=== PATIENT | female | born 1975 | race African-American/Black ===

== ENCOUNTER 2018-10-11 03:43 | Emergency (ER) | payer BC ==
[2018-10-11] MEDS ORDERED: Sodium Chloride 0.9% 10 ML Syringe FLUSH PRN (04:21)
[2018-10-11] MEDS ORDERED: Morphine 2 MG/ML Syringe IVPUSH ONE (04:21)
[2018-10-11] MEDS ORDERED: Ondansetron 4 MG/2 ML SDV IVPUSH ONE (04:21)
[2018-10-11] MEDS ORDERED: Pantoprazole 40 MG Vial IVPUSH ONE (04:21)
[2018-10-11] MEDS ORDERED: Sodium Chloride 0.9% 1,000 ML IV ONE (04:21)
[2018-10-11] MEDS ORDERED: Sodium Chloride 0.9% 2.5 ML Syringe FLUSH PRN (04:21)
--- NOTE | 2018-10-11 04:25 | EDM.PDOC ---
ED HPI GENERAL MEDICAL PROBLEM - General Chief Complaint: Abdominal Pain Stated Complaint: ABDOMINAL PAIN Time Seen by Provider: 10/11/18 04:12 - History of Present Illness INITIAL COMMENTS - FREE TEXT/NARRATIVE: HISTORY AND PHYSICAL: History of present illness: The patient is a 42-year-old female who was seen here mid-June for epigastric pain radiating to her chest and was worked up with labs CT scan of the abdomen and pelvis and chest x-ray. On that visit she was diagnosed with H. pylori and given treatment as well as cholelithiasis. The patient said she completed the treatment but did not follow-up and now is presenting with several days of epigastric pain similar to her prior episode of H. pylori. She has tried [id number]-[id number] medications such as antacids and H2 blockers and they have not worked. She's not had vomiting or diarrhea and the pain does not radiate but is mostly in the epigastrium. She says she has not had any food intolerance and no issues with right upper quadrant pain. Patient denies kidney trouble or urinary complaints and has no chest pain or shortness of breath. Patient says that the pain this time is much more severe than her prior visit here in June. Review of systems: As per history of present illness and below otherwise all systems reviewed and negative. Past medical history: As per history of present illness and as reviewed below otherwise noncontributory. Surgical history: As per history of present illness and as reviewed below otherwise noncontributory. Social history: No reported history of drug or alcohol abuse. Family history: As per history of present illness and as reviewed below otherwise noncontributory. Physical exam: General: Well-developed well-nourished female who is nontoxic and vital signs are noted by me HEENT: Atraumatic, normocephalic, negative for conjunctival pallor or scleral icterus, mucous membranes moist, throat clear, neck supple, nontender, trachea midline. Lungs: Clear to auscultation, breath sounds equal bilaterally, chest nontender. Heart: S1S2, regular rate and rhythm no overt murmurs Abdomen: Soft, nondistended, epigastric discomfort with palpation but no left upper or right upper quadrant tenderness and there is no rebound or guarding. The abdomen is very soft on my examination despite the discomfort. Negative for masses or hepatosplenomegaly. NABS Pelvis: Stable nontender. Genitourinary: Deferred. Rectal: Deferred. Extremities: Atraumatic, negative for cords or calf pain. Neurovascular unremarkable. Neuro: Awake, alert, oriented. Cranial nerves II through XII unremarkable. Cerebellum unremarkable. Motor and sensory unremarkable throughout. Exam nonfocal. Diagnostics: EKG CBC CMP amylase lipase H. pylori UCG UA CT scan of the abdomen and pelvis Therapeutics: IV fluids Protonix morphine Zofran Dilaudid 0650: Case was discussed with Dr. Martin and he feels the patient should get another dose of pain medication and she can be seen in his clinic today or tomorrow. The patient does have gallstones but has normal labs and has no right upper quadrant pain so we will treat her for H. pylori and biliary colic. He said he will see her and evaluate her for endoscopy and cholecystectomy. Patient is aware that she will receive more pain medication and an appointment will be made for her with Dr. Bojorquez to be seen. Impression: Recurrent H. pylori infection with epigastric pain, biliary colic with cholelithiasis Definitive disposition and diagnosis as appropriate pending reevaluation and review of above. Upper Abdominal Pain Score (Numeric/FACES): 8 - Related Data Allergies Allergy/AdvReac Type Severity Reaction Status Date / Time No Known Allergies Allergy Verified 10/11/18 04:09 Home Meds: Home Meds . 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 ED EXAM, GENERAL - Physical Exam Exam: See Below (see dictation) Course - Vital Signs Last Recorded V/S: Last Vital Signs Temp 36.9 C 10/11/18 06:45 Pulse 74 10/11/18 06:45 Resp 20 10/11/18 04:07 BP 158/96 H 10/11/18 06:45 Pulse Ox 100 10/11/18 06:45 - Orders/Labs/Meds Orders: Active Orders 24 hr Category Date Time Status EKG Documentation Completion [RC] STAT Care 10/11/18 04:20 Active Sodium Chloride 0.9% [Saline Flush] Med 10/11/18 04:21 Active 10 ml FLUSH ASDIRECTED PRN Sodium Chloride 0.9% [Saline Flush] Med 10/11/18 04:21 Active 2.5 ml FLUSH ASDIRECTED PRN Saline Lock Insert [OM.PC] Stat Oth 10/11/18 04:20 Ordered Medication Orders Sodium Chloride (Saline Flush) 10 ml FLUSH ASDIRECTED PRN PRN Reason: Keep Vein Open Last Admin: 10/11/18 04:54 Dose: 10 ml Sodium Chloride (Saline Flush) 2.5 ml FLUSH ASDIRECTED PRN PRN Reason: Keep Vein Open Last Admin: 10/11/18 04:55 Dose: 2.5 ml Labs: Laboratory Tests 10/11/18 10/11/18 10/11/18 Range/Units 04:30 04:30 04:30 WBC 11.28 H (4.0-11.0) K/uL RBC 4.56 (4.30-5.90) M/uL Hgb 13.3 (12.0-16.0) g/dL Hct 39.0 (36.0-46.0) % MCV 85.5 (80.0-98.0) fL MCH 29.2 (27.0-32.0) pg MCHC 34.1 (31.0-37.0) g/dL RDW Std Deviation 40.2 (28.0-62.0) fl RDW Coeff of Phillip 13 (11.0-15.0) % Plt Count 339 (150-400) K/uL MPV 8.70 (7.40-12.00) fL Neut % (Auto) 77.6 (48.0-80.0) % Lymph % (Auto) 16.4 (16.0-40.0) % [place] % (Auto) 5.4 (0.0-15.0) % Eos % (Auto) 0.4 (0.0-7.0) % Baso % (Auto) 0.2 (0.0-1.5) % Neut # (Auto) 8.8 H (1.4-5.7) K/uL Lymph # (Auto) 1.9 (0.6-2.4) K/uL [place] # (Auto) 0.6 (0.0-0.8) K/uL Eos # (Auto) 0.1 (0.0-0.7) K/uL Baso # (Auto) 0.0 (0.0-0.1) K/uL Nucleated RBC % 0.0 /100WBC Nucleated RBCs # 0 K/uL Sodium 135 L (136-145) mmol/L Potassium 3.8 (3.5-5.1) mmol/L Chloride 100 (98-107) mmol/L Carbon Dioxide 24.9 (21.0-32.0) mmol/L BUN 16 (7.0-18.0) mg/dL Creatinine 0.9 (0.6-1.0) mg/dL Est Cr Clr Drug Dosing 67.36 mL/min Estimated GFR (MDRD) > 60.0 ml/min Glucose 154 H (74-106) mg/dL Calcium 9.4 (8.5-10.1) mg/dL Total Bilirubin 0.4 (0.2-1.0) mg/dL AST 17 (15-37) IU/L ALT 21 (14-63) IU/L Alkaline Phosphatase 98 (46-116) U/L Total Protein 8.1 (6.4-8.2) g/dL Albumin 4.0 (3.4-5.0) g/dL Globulin 4.1 H (2.6-4.0) g/dL Albumin/Globulin Ratio 1.0 (0.9-1.6) Amylase 98 (25-115) U/L Lipase 143 (73-393) U/L HCG, Qual NEGATIVE (NEG) Urine Color Urine Appearance Urine pH (5.0-8.0) Ur Specific Gregory (1.001-1.035) Urine Protein (NEGATIVE) mg/dL Urine Glucose (UA) (NEGATIVE) mg/dL Urine Ketones (NEGATIVE) mg/dL Urine Occult Blood (NEGATIVE) Urine Nitrite (NEGATIVE) Urine Bilirubin (NEGATIVE) Urine Urobilinogen (<2.0) EU/dL Ur Leukocyte Esterase (NEGATIVE) H. pylori IgG Antibody POSITIVE H (NEG) 10/11/18 Range/Units 06:25 WBC (4.0-11.0) K/uL RBC (4.30-5.90) M/uL Hgb (12.0-16.0) g/dL Hct (36.0-46.0) % MCV (80.0-98.0) fL MCH (27.0-32.0) pg MCHC (31.0-37.0) g/dL RDW Std Deviation (28.0-62.0) fl RDW Coeff of Phillip (11.0-15.0) % Plt Count (150-400) K/uL MPV (7.40-12.00) fL Neut % (Auto) (48.0-80.0) % Lymph % (Auto) (16.0-40.0) % [place] % (Auto) (0.0-15.0) % Eos % (Auto) (0.0-7.0) % Baso % (Auto) (0.0-1.5) % Neut # (Auto) (1.4-5.7) K/uL Lymph # (Auto) (0.6-2.4) K/uL [place] # (Auto) (0.0-0.8) K/uL Eos # (Auto) (0.0-0.7) K/uL Baso # (Auto) (0.0-0.1) K/uL Nucleated RBC % /100WBC Nucleated RBCs # K/uL Sodium (136-145) mmol/L Potassium (3.5-5.1) mmol/L Chloride (98-107) mmol/L Carbon Dioxide (21.0-32.0) mmol/L BUN (7.0-18.0) mg/dL Creatinine (0.6-1.0) mg/dL Est Cr Clr Drug Dosing mL/min Estimated GFR (MDRD) ml/min Glucose (74-106) mg/dL Calcium (8.5-10.1) mg/dL Total Bilirubin (0.2-1.0) mg/dL AST (15-37) IU/L ALT (14-63) IU/L Alkaline Phosphatase (46-116) U/L Total Protein (6.4-8.2) g/dL Albumin (3.4-5.0) g/dL Globulin (2.6-4.0) g/dL Albumin/Globulin Ratio (0.9-1.6) Amylase (25-115) U/L Lipase (73-393) U/L HCG, Qual (NEG) Urine Color YELLOW Urine Appearance SLT CLOUDY Urine pH 6.5 (5.0-8.0) Ur Specific Gregory 1.010 (1.001-1.035) Urine Protein NEGATIVE (NEGATIVE) mg/dL Urine Glucose (UA) NEGATIVE (NEGATIVE) mg/dL Urine Ketones NEGATIVE (NEGATIVE) mg/dL Urine Occult Blood NEGATIVE (NEGATIVE) Urine Nitrite NEGATIVE (NEGATIVE) Urine Bilirubin NEGATIVE (NEGATIVE) Urine Urobilinogen 0.2 (<2.0) EU/dL Ur Leukocyte Esterase NEGATIVE (NEGATIVE) H. pylori IgG Antibody (NEG) Meds: Medications Generic Name Dose Route Start Last Admin Trade Name Freq PRN Reason Stop Dose Admin Sodium Chloride 10 ml 10/11/18 04:21 10/11/18 04:54 Saline Flush FLUSH 10 ml ASDIRECTED PRN Administration Keep Vein Open Sodium Chloride 2.5 ml 10/11/18 04:21 10/11/18 04:55 Saline Flush FLUSH 2.5 ml ASDIRECTED PRN Administration Keep Vein Open Discontinued Medications Generic Name Dose Route Start Last Admin Trade Name Freq PRN Reason Stop Dose Admin Hydromorphone HCl 1 mg 10/11/18 06:56 Dilaudid IVPUSH 10/11/18 06:57 ONETIME ONE Sodium Chloride 1,000 mls @ 999 mls/hr 10/11/18 04:21 10/11/18 04:37 Normal Saline IV 10/11/18 05:21 999 mls/hr STAT ONE Administration Iopamidol 100 ml 10/11/18 05:35 10/11/18 05:44 Isovue-370 (76%) IVPUSH 10/11/18 05:36 100 ml ONETIME ONE Administration Morphine Sulfate 4 mg 10/11/18 04:21 10/11/18 04:38 Morphine IVPUSH 10/11/18 04:22 4 mg ONETIME ONE Administration Ondansetron HCl 4 mg 10/11/18 04:21 10/11/18 04:45 Zofran IVPUSH 10/11/18 04:22 4 mg ONETIME ONE Administration Pantoprazole Sodium 80 mg 10/11/18 04:21 10/11/18 04:50 Protonix Iv IVPUSH 10/11/18 04:22 80 mg .BOLUS ONE Administration Departure - Departure Time of Disposition: 06:59 Disposition: Home, Self-Care 01 Condition: Good Clinical Impression: Helicobacter pylori (H. pylori), Biliary colic Cholelithiasis Qualifiers: Cholelithiasis location: gallbladder Cholecystitis presence: without cholecystitis Biliary obstruction: without biliary obstruction Qualified Code(s) : K80.20 - Calculus of gallbladder without cholecystitis without obstruction - Discharge Information Referrals: Dyana Wolfe NP [Primary Care Provider] - Forms: ED Department Discharge Additional Instructions: The following information is given to patients seen in the emergency department who are being discharged to home. This information is to outline your options for follow-up care. We provide all patients seen in our emergency department with a follow-up referral. The need for follow-up, as well as the timing and circumstances, are variable depending upon the specifics of your emergency department visit. If you don't have a primary care physician on staff, we will provide you with a referral. We always advise you to contact your personal physician following an emergency department visit to inform them of the circumstance of the visit and for follow-up with them and/or the need for any referrals to a consulting specialist. The emergency department will also refer you to a specialist when appropriate. This referral assures that you have the opportunity for followup care with a specialist. All of these measure are taken in an effort to provide you with optimal care, which includes your followup. Under all circumstances we always encourage you to contact your private physician who remains a resource for coordinating your care. When calling for followup care, please make the office aware that this follow-up is from your recent emergency room visit. If for any reason you are refused follow-up, please contact the [facility] emergency department at and ask to speak to the emergency department charge nurse. [facility] Professional Building [address] [place] [id number] The nurse will make a follow-up appointment for you with Dr. Martin and contact you in the next few hours with that appointment time. Please go home and rest and eat a low-fat diet and push hydration. Use medications as prescribed for nausea and for pain and also take the medications for your H. pylori infection. Return to ER as needed and as discussed - My Orders Last 24 Hours: My Active Orders 10/11/18 04:20 EKG Documentation Completion [RC] STAT Saline Lock Insert [OM.PC] Stat 10/11/18 04:21 Sodium Chloride 0.9% [Saline Flush] 10 ml FLUSH ASDIRECTED PRN Sodium Chloride 0.9% [Saline Flush] 2.5 ml FLUSH ASDIRECTED PRN - Assessment/Plan Last 24 Hours: My Active Orders 10/11/18 04:20 EKG Documentation Completion [RC] STAT Saline Lock Insert [OM.PC] Stat 10/11/18 04:21 Sodium Chloride 0.9% [Saline Flush] 10 ml FLUSH ASDIRECTED PRN Sodium Chloride 0.9% [Saline Flush] 2.5 ml FLUSH ASDIRECTED PRN
[2018-10-11 04:59] LABS: CHLORIDE,CL 100 mmol/L (98-107); SODIUM,NA 135 mmol/L (136-145)
[2018-10-11] MEDS ORDERED: Iopamidol 755 Mg/ML 100 ML Bottle IVPUSH ONE (05:35)
--- NOTE | 2018-10-11 06:35 | CT ---
INDICATION: Abdominal pain. COMPARISON: CT scan of the abdomen and pelvis dated 14 June 2018. TECHNIQUE: CT scan of the abdomen and pelvis with 100 cc of Isovue-370 given intravenously. FINDINGS: The lung bases are unremarkable. No focal abnormalities identified in the visualized portions of the liver, spleen, pancreas, and adrenal glands. Dystrophic calcification in the superior pole of the left kidney. 1.0 cm cyst in the superior pole of the right kidney. The kidneys are otherwise unremarkable. No hydronephrosis. No obstructing uroliths. Gallstone in the gallbladder. Minimal pericholecystic edema. The GI tract is incompletely distended but shows no gross abnormalities. The stomach and GE junction are not well assessed. No retroperitoneal, pelvic sidewall, or mesenteric adenopathy. IMPRESSION: 1. Cholelithiasis. Minimal pericholecystic edema. This could represent a cholecystitis. Dictated by John Dumont MD @ 10/11/2018 6:34:25 AM Please note that all CT scans at this facility use dose modulation, iterative reconstruction, and/or weight-based dosing when appropriate to reduce radiation dose to as low as reasonably achievable. Dictated by: John Dumont MD @ 10/11/2018 06:34:35 (Electronically Signed)
[2018-10-11] MEDS ORDERED: HYDROmorphone 1 MG/ML Syringe IVPUSH ONE (06:56)
[2018-10-11 07:39] VITALS: BP 123/76
== END 2018-10-11 07:39 | disposition home or self-care (01) ==
LOC: MW.ED 03:43
DX: K80.70 Calculus of gallbladder and bile duct without cholecystitis without obstruction (principal); B96.81 Helicobacter pylori [H. pylori] as the cause of diseases classified elsewhere
CPT/HCPCS: 36415; 74177; 80053; 81003; 82150; 83690; 84703; 85025; 86677; 93005; 96361; 96374; 96375; 99284; C9113; J1170; J2270; J2405; J7040; Q9967; 99283

== ENCOUNTER 2018-10-14 09:10 | Day surgery (SDC) | payer BC ==
[~2018-10-14 09:10] MED LIST: Glycopyrrolate 0.2 MG/ML SDV ONE; Lactated Ringers 1,000 ML IV SCH; Lidocaine 2% 5 ML SDV ONE; Midazolam 1 MG/ML 2 ML SDV ONE; Neostigmine Methylsulfate 1 MG/ML 5 ML Syringe ONE; Ondansetron 4 MG/2 ML SDV ONE; Propofol 200 MG/20 ML SDV ONE; Rocuronium 10 MG/ML 10 ML Syringe ONE; ceFAZolin 2 GM in Premix Bag 1 BAG IV ONE; fentaNYL 250 MCG/5 ML SDV ONE
[2018-10-14] MEDS ORDERED: Scopolamine 1.5 MG Transdermal Patch TRDERM PRN (10:30)
[2018-10-14] MEDS ORDERED: Bupivacaine 0.25% 10 ML SDV ONE (10:45)
[2018-10-14] MEDS ORDERED: Iopamidol 408 MG/ML 50 ML SDV ONE (10:46)
[2018-10-14] MEDS ORDERED: Bupivacaine 0.25%/EPINEPHrine 1:200,000 10 ML SDV ONE ×2 (10:51→11:33)
--- NOTE | 2018-10-14 10:53 | PCM.PREANE ---
Preanesthetic Assessment - Anesthesia/Transfusion/Family Hx Anesthesia History: No Prior Anesthesia Family History of Anesthesia Reaction: No Transfusion History: No Prior Transfusion(s) - Review of Systems General: No Symptoms Pulmonary: No Symptoms Cardiovascular: No Symptoms Gastrointestinal: No Symptoms Neurological: No Symptoms Other: Reports: None - Physical Assessment NPO Status Date: 10/13/18 Height: 5 ft 3 in Weight: 80.286 kg ASA Class: 1 Mental Status: Alert & Oriented x3 Airway Class: Mallampati = 1 Dentition: Reports: Normal Dentition ROM/Head Extension: Full Lungs: Clear to Auscultation, Normal Respiratory Effort Cardiovascular: Regular Rate, Regular Rhythm - Lab Values: Laboratory Last Values Urine HCG, Qual NEGATIVE (NEGATIVE) 10/14/18 10:24 - Allergies Allergies/Adverse Reactions: Allergies Allergy/AdvReac Type Severity Reaction Status Date / Time No Known Allergies Allergy Verified 10/11/18 16:01 - Blood Blood Available: No - Anesthesia Plan Pre-Op Medication Ordered: None - Acknowledgements Anesthesia Type Planned: General Anesthesia Pt an Appropriate Candidate for the Planned Anesthesia: Yes Alternatives and Risks of Anesthesia Discussed w Pt/Guardian: Yes Pt/Guardian Understands and Agrees with Anesthesia Plan: Yes PreAnesthesia Questionnaire - Past Health History Medical/Surgical History: Denies Medical/Surgical History HEENT History: Reports: None Other Cardiovascular History: murmur as an infant Respiratory History: Reports: None Gastrointestinal History: Reports: Cholelithiasis, GERD Genitourinary History: Reports: None [employer] History: Reports: Musculoskeletal History: Reports: None Neurological History: Reports: None Psychiatric History: Reports: None Endocrine/Metabolic History: Reports: Obesity/BMI 30+ Hematologic History: Reports: None Immunologic History: Reports: None Oncologic (Cancer) History: Reports: None Dermatologic History: Reports: None - Past Surgical History Head Surgeries/Procedures: Reports: None HEENT Surgical History: Reports: None Cardiovascular Surgical History: Reports: None Respiratory Surgical History: Reports: None GI Surgical History: Reports: None Female Surgical History: Reports: None Endocrine Surgical History: Reports: None Neurological Surgical History: Reports: None Oncologic Surgical History: Reports: None Dermatological Surgical History: Reports: None - SUBSTANCE USE Smoking Status *Q: Former Smoker Tobacco Use Within Last Twelve Months: Cigarettes Recreational Drug Use History: No - HOME MEDS Home Medications: Home Meds Acetaminophen [Tylenol] 1 - 2 tab PO ASDIRECTED PRN 10/11/18 [History] Amoxicillin 2 tab PO BID 10/11/18 [History] Clarithromycin 500 mg PO BID 10/11/18 [History] Lansoprazole [Prevacid] 30 mg PO DAILY 10/11/18 [History] Ondansetron HCl [Ondansetron] 4 mg PO ASDIRECTED PRN 10/11/18 [History] traMADol HCl [Tramadol HCl] 50 mg PO ASDIRECTED PRN 10/11/18 [History] - CURRENT (IN HOUSE) MEDS Current Meds: Current Medications Lactated Ringer's (Ringers, Lactated) 1,000 mls @ 125 mls/hr IV ASDIRECTED CECE Scopolamine (Transderm-Scop) 1.5 mg TRDERM Q72H PRN PRN Reason: Nausea/Vomiting Discontinued Medications Bupivacaine HCl (Sensorcaine-Mpf 0.25%) Confirm Administered Dose 10 ml .ROUTE .STK-MED ONE Stop: 10/14/18 10:46 Fentanyl (Sublimaze) Confirm Administered Dose 250 mcg .ROUTE .STK-MED ONE Stop: 10/14/18 08:49 Glycopyrrolate (Robinul) Confirm Administered Dose 0.4 mg .ROUTE .STK-MED ONE Stop: 10/14/18 08:48 Cefazolin Sodium/Dextrose 2 gm (/ Premix) 50 mls @ 100 mls/hr IV ONETIME ONE Stop: 10/14/18 05:29 Iopamidol (Isovue-200 (41%)) Confirm Administered Dose 50 ml .ROUTE .STK-MED ONE Stop: 10/14/18 10:47 Lidocaine (Xylocaine-Mpf 2%) Confirm Administered Dose 5 ml .ROUTE .STK-MED ONE Stop: 10/14/18 08:48 Midazolam HCl (Versed 1 Mg/Ml) Confirm Administered Dose 2 mg .ROUTE .STK-MED ONE Stop: 10/14/18 08:49 Neostigmine Methylsulfate (Neostigmine) Confirm Administered Dose 5 mg .ROUTE .STK-MED ONE Stop: 10/14/18 08:48 Ondansetron HCl (Zofran) Confirm Administered Dose 4 mg .ROUTE .STK-MED ONE Stop: 10/14/18 08:48 Propofol (Diprivan 20 Ml) Confirm Administered Dose 200 mg .ROUTE .STK-MED ONE Stop: 10/14/18 08:49 Rocuronium [place] (Zemuron) Confirm Administered Dose 100 mg .ROUTE .STK-MED ONE Stop: 10/14/18 08:48
[2018-10-14] MEDS ORDERED: ceFAZolin 1 GM Vial ONE (11:17)
[2018-10-14] MEDS ORDERED: Sodium Chloride 0.9% 20 ML ONE (11:17)
[2018-10-14] MEDS ORDERED: ePHEDrine 50 MG/ML SDV ONE (11:33)
[2018-10-14] MEDS ORDERED: EPINEPHrine 1:10,000 1 MG/10 ML Syringe IVPUSH PRN (11:38)
[2018-10-14] MEDS ORDERED: Atropine 0.1 MG/ML 10 ML Syringe IVPUSH PRN ×2 (11:38)
[2018-10-14] MEDS ORDERED: Albuterol 0.083% 2.5 MG/3 ML Neb Soln NEB PRN (11:38)
[2018-10-14] MEDS ORDERED: Naloxone 0.4 MG/ML Syringe IVPUSH PRN (11:38)
[2018-10-14] MEDS ORDERED: fentaNYL 100 MCG/2 ML SDV IVPUSH PRN (11:38)
[2018-10-14] MEDS ORDERED: 50% Dextrose in Water 50 ML Syringe IVPUSH PRN (11:38)
[2018-10-14] MEDS ORDERED: fentaNYL 100 MCG/2 ML SDV ONE (11:50)
[2018-10-14] MEDS ORDERED: Ketorolac 30 MG/ML SDV ONE (12:17)
[2018-10-14] MEDS ORDERED: Dexamethasone 4 MG/ML 5 ML MDV ONE (12:17)
[2018-10-14] MEDS ORDERED: Acetaminophen 1,000 MG in Premix Bag 1 BAG IV ONE (12:56)
--- NOTE | 2018-10-14 12:59 | PCM.OPNOTE ---
- General Post-Op/Procedure Note Date of Surgery/Procedure: 10/14/18 Operative Procedure(s): lap genia Findings: gb yellow and green cw chronic cholecystitis; and many gallstones, 3 large ones 10+mm; wall is not thickened; [id number] Pre Op Diagnosis: chronic and acute cholecystitis Post-Op Diagnosis: Same Anesthesia Technique: General ET Tube Primary Surgeon: Fuad Martin Pathology: sent Complications: None Condition: Good
--- NOTE | 2018-10-14 13:22 | OR ---
SURGEON: Fuad Martin MD DATE OF PROCEDURE: 10/14/2018 PREOPERATIVE DIAGNOSIS: [id number] cholecystitis. POSTOPERATIVE DIAGNOSIS: [id number] cholecystitis. PROCEDURE PERFORMED: Laparoscopic cholecystectomy. COMPLICATION: None. FINDINGS: Gallbladder wall is not thickened, but is yellow and green and consistent with chronic cholecystitis, and also the patient has several stones and three of them are bigger than 1 cm. PROCEDURE IN DETAIL: The patient was taken to the operating room and placed in the supine position. After the intubation of general endotracheal anesthesia, the patient's abdomen was prepped and draped in the usual sterile fashion. Using Feeding Forward, a 12 mm trocar was placed supraumbilically and then followed with pneumoperitoneum. A 5 mm trocar was placed in the epigastrium and two 5 mm trocars placed in the right upper quadrant. The placement of the last three trocars was done under direct video supervision. Upon gaining entrance to the abdominal cavity, an extensive examination was then performed. The gallbladder was located and identified and retracted to the dome of the liver at the triangle of Calot. The cystic duct was clipped three more times and then using the endoscopic clip, was transected with placement of the endoscopic clip and transection was performed with care, ensuring the posterior prong of the instruments were clearly visualized prior to exercising the procedure. The gallbladder was dissected using electrocautery out of the liver bed and then removed using endoscopic bag through the umbilical site. The gallbladder was removed en bloc and there was no bile spillage and this was then followed with extensive irrigation until the bile was clear from blood and bile. The trocars were then removed under direct video supervision. The 12 mm umbilical site was then closed with deep stitches using 0 Vicryl followed with proximal stitches using 3-0 Vicryl and Dermabond. The other three trocar sites were closed with 3-0 Vicryl followed with approximation of skin with Dermabond. The patient was then awakened and extubated and transferred to the recovery room in hemodynamically stable condition. At the conclusion of the surgery, before closing the abdominal wound, instrument count and sponge count were done and were correct. The patient tolerated the procedure well and there were no intraoperative complications. Dr. Martin was present through the whole procedure. Just before surgery, a timeout was called. The patient was identified and procedure identified and procedure started. ESTELLE / MACRINA /[id number]
--- NOTE | 2018-10-14 13:24 | PCM.POSTAN ---
POST ANESTHESIA ASSESSMENT - MENTAL STATUS Mental Status: Alert, Oriented - RESPIRATORY Respiratory Status: Respiratory Rate WNL, Airway Patent, O2 Saturation Stable - CARDIOVASCULAR CV Status: Pulse Rate WNL, Blood Pressure Stable - GASTROINTESTINAL GI Status: No Symptoms - POST OP HYDRATION Hydration Status: Adequate & Stable - OBSERVATIONS Free Text/Narrative:: The patient tolerated the procedure well. there were no apparent anesthetic complications at this time. Discharge to phase 2.
[2018-10-14] MEDS ORDERED: Acetaminophen/oxyCODONE 325-5 MG Tab PO ONE (14:48)
[2018-10-14] MEDS ORDERED: Haloperidol Lactate 5 MG/ML SDV IM ONE (15:09)
--- NOTE | 2018-10-14 15:20 | PCM48HPAN ---
Post Anesthesia Note - EVALUATION WITHIN 48HRS OF ANESTHETIC Vital Signs in Normal Range: Yes Patient Participated in Evaluation: Yes Respiratory Function Stable: Yes Airway Patent: Yes Cardiovascular Function Stable: Yes Hydration Status Stable: Yes Pain Control Satisfactory: Yes Nausea and Vomiting Control Satisfactory: Yes Mental Status Recovered: Yes Resp Rate: 10
[2018-10-14 16:01] VITALS: BP 122/69
== END 2018-10-14 15:47 | disposition home or self-care (01) ==
LOC: MW.SDS 09:10
PROVIDERS: ATTEND Surgery
DX: K80.12 Calculus of gallbladder with acute and chronic cholecystitis without obstruction (principal); A04.8 Other specified bacterial intestinal infections; K21.9 Gastro-esophageal reflux disease without esophagitis; Z87.891 Personal history of nicotine dependence; Z79.899 Other long term (current) drug therapy
CPT/HCPCS: 47562; 81025; A9270; J0131; J0690; J1100; J1885; J2001; J2250; J2405; J2704; J3010; J3490; J7120; Q9966; 88304

== ENCOUNTER 2018-10-22 08:43 | Day surgery (SDC) | payer BC ==
[~2018-10-22 08:43] MED LIST changes: -Glycopyrrolate 0.2 MG/ML SDV ONE; -Lidocaine 2% 5 ML SDV ONE; -Midazolam 1 MG/ML 2 ML SDV ONE; -Neostigmine Methylsulfate 1 MG/ML 5 ML Syringe ONE; -Ondansetron 4 MG/2 ML SDV ONE; -Propofol 200 MG/20 ML SDV ONE; -Rocuronium 10 MG/ML 10 ML Syringe ONE; -ceFAZolin 2 GM in Premix Bag 1 BAG IV ONE; -fentaNYL 250 MCG/5 ML SDV ONE
--- NOTE | 2018-10-22 10:14 | PCM.PREANE ---
Preanesthetic Assessment - Anesthesia/Transfusion/Family Hx Anesthesia History: Prior Anesthesia Without Reaction Family History of Anesthesia Reaction: No Transfusion History: No Prior Transfusion(s) Intubation History: Unknown - Review of Systems General: No Symptoms Pulmonary: No Symptoms Cardiovascular: No Symptoms Gastrointestinal: No Symptoms Neurological: No Symptoms Other: Reports: None - Physical Assessment O2 Sat by Pulse Oximetry: 100 Respiratory Rate: 16 Vital Signs: Last Vital Signs Temp 36. C 10/22/18 09:46 Pulse 84 10/22/18 09:46 Resp 16 10/22/18 09:46 BP 119/65 10/22/18 09:46 Pulse Ox 100 10/22/18 09:46 Height: 1.6 m Weight: 80.286 kg ASA Class: 2 Mental Status: Alert & Oriented x3 Airway Class: Mallampati = 2 Dentition: Reports: Normal Dentition Thyro-Mental Finger Breadths: 3 Mouth Opening Finger Breadths: 3 ROM/Head Extension: Full Lungs: Clear to Auscultation, Normal Respiratory Effort Cardiovascular: Regular Rate, Regular Rhythm - Lab Values: Laboratory Last Values Urine HCG, Qual NEGATIVE (NEGATIVE) 10/22/18 09:40 - Allergies Allergies/Adverse Reactions: Allergies Allergy/AdvReac Type Severity Reaction Status Date / Time No Known Allergies Allergy Verified 10/19/18 10:05 - Blood Blood Available: No - Anesthesia Plan Pre-Op Medication Ordered: None - Acknowledgements Anesthesia Type Planned: MAC Pt an Appropriate Candidate for the Planned Anesthesia: Yes Alternatives and Risks of Anesthesia Discussed w Pt/Guardian: Yes Pt/Guardian Understands and Agrees with Anesthesia Plan: Yes PreAnesthesia Questionnaire - Past Health History Medical/Surgical History: Denies Medical/Surgical History HEENT History: Reports: None Other Cardiovascular History: murmur as an Respiratory History: Reports: None Gastrointestinal History: Reports: GERD Genitourinary History: Reports: None YARD RIGGER History: Reports: Musculoskeletal History: Reports: None Neurological History: Reports: None Psychiatric History: Reports: None Endocrine/Metabolic History: Reports: Obesity/BMI 30+ Hematologic History: Reports: None Immunologic History: Reports: None Oncologic (Cancer) History: Reports: None Dermatologic History: Reports: None - Past Surgical History Head Surgeries/Procedures: Reports: None HEENT Surgical History: Reports: None Cardiovascular Surgical History: Reports: None Respiratory Surgical History: Reports: None GI Surgical History: Reports: Cholecystectomy Female Surgical History: Reports: None Endocrine Surgical History: Reports: None Neurological Surgical History: Reports: None Oncologic Surgical History: Reports: None Dermatological Surgical History: Reports: None - SUBSTANCE USE Smoking Status *Q: Former Smoker (quit 6 months ago) Tobacco Use Within Last Twelve Months: Cigarettes Recreational Drug Use History: No - HOME MEDS Home Medications: Home Meds Amoxicillin 21,000 mg PO BID 10/11/18 [History] Clarithromycin 500 mg PO BID 10/11/18 [History] Lansoprazole [Prevacid] 30 mg PO BID 10/11/18 [History] Ondansetron HCl [Ondansetron] 4 mg PO ASDIRECTED PRN 10/11/18 [History] oxyCODONE HCl/Acetaminophen [Oxycodone-Acetaminophen 5-300] 1 tab PO ASDIRECTED PRN 10/19/18 [History] - CURRENT (IN HOUSE) MEDS Current Meds: Current Medications Lactated Ringer's (Ringers, Lactated) 1,000 mls @ 125 mls/hr IV ASDIRECTED CECE Last Admin: 10/22/18 09:52 Dose: 125 mls/hr
[2018-10-22] MEDS ORDERED: fentaNYL 100 MCG/2 ML SDV ONE (10:18)
[2018-10-22] MEDS ORDERED: Midazolam 1 MG/ML 2 ML SDV ONE (10:18)
[2018-10-22] MEDS ORDERED: Propofol 200 MG/20 ML SDV ONE ×2 (10:18→11:17)
[2018-10-22] MEDS ORDERED: Glycopyrrolate 0.2 MG/ML SDV ONE (10:21)
--- NOTE | 2018-10-22 11:43 | PCM.OPNOTE ---
- General Post-Op/Procedure Note Date of Surgery/Procedure: 10/22/18 Operative Procedure(s): egd w bx. colonoscopy Findings: see dict [id number] Pre Op Diagnosis: wt loss and abd pain Post-Op Diagnosis: Same Anesthesia Technique: Moderate Sedation Primary Surgeon: Fuad Martin Pathology: egd bx Complications: None Condition: Good
[2018-10-22 12:09] VITALS: BP 102/59
--- NOTE | 2018-10-22 15:05 | OR ---
SURGEON: Fuad Martin MD DATE OF PROCEDURE: 10/22/2018 PREOPERATIVE DIAGNOSES: 1. Weight loss. 2. Increasing diarrhea. 3. Gastroesophageal reflux disease. POSTOPERATIVE DIAGNOSES: 1. Weight loss. 2. Increasing diarrhea. 3. Gastroesophageal reflux disease. PROCEDURES PERFORMED: Esophagogastroduodenoscopy with biopsy, and colonoscopy. PROCEDURE IN DETAIL: EGD: The patient was taken to the endoscopy room, and with the COMMERCIAL CREDIT ANALYST, Diprivan was administered. A well-lubricated EGD scope was gently inserted through the oropharynx, down the esophagus, passing through the gastroesophageal junction, into the stomach. The mucosa was examined upon the passage. Any etiology will be noted. Once in the stomach, we continued to advance to the distal antrum, passed through the pylorus into the second portion of the duodenum. Again, the mucosa was examined for any abnormality and etiology. The scope was then retrieved back to the stomach and then retroflexed to look at the fundus of the stomach. If a biopsy was indicated, we will biopsy the antrum, body, and gastroesophageal junction. The air will be sucked out while the scope is retrieved to reduce the patient's discomfort. The patient tolerated the procedure well. There were no intraoperative complications. Dr. Martin was present through the whole procedure. Prior to surgery, a time-out had been called, the patient identified, procedure identified and antibiotic administered. Colonoscopy procedure: The patient was taken to the endoscopy room. A time out was called, patient identified, and procedure identified. Diprivan was then administrated. Patient went from awake to sleep, hearing doctor talking or door closing is normal. Perineum inspection and digital examination were then performed. A well- lubricated colonoscope was gently inserted through the rectum, advanced past the rectosigmoid junction, the descending colon, splenic flexure, transverse colon, hepatic flexure, ascending colon, arrived to the cecum. Cecum was identified as dictated in the finding. Then the scope was carefully withdrawn while attention was paid to the mucosal surface for any abnormality. Air will be sucked out during the scope withdrawal. At the rectum, retroflexed to examine any rectal diseases, fistula or hemorrhoids. Patient tolerated procedure well. There were no intraoperative complications, and Dr. Martin was present throughout the whole procedure. FINDINGS: EGD findings: 1. The patient is easily sedated with COMMERCIAL CREDIT ANALYST and Diprivan. The patient is soundly snoring. 2. Oropharynx and proximal esophagus are free of disease and GE junction at 40 cm with minimal salmon-colored change and perhaps early formation of Schatzki ring. Stomach rugae is normal in appearance. Duodenum was grossly normal in appearance. Antrum is not inflamed, and there is no blood, bile, or food particle in the stomach. Retroflexed look at the fundus of stomach, there was no hiatal hernia. Biopsy done at antrum, body, and GE junction and sucked out the gas while scope pulling out. Colonoscopy findings: 1. The patient is easily sedated with COMMERCIAL CREDIT ANALYST and Diprivan. The patient is soundly snoring. 2. Bowel prep is average with moderate amount of liquid stool, no solid stool. Colon is rather straight forward. Cecum indicated by ileocecal fold, one- to-one indentation, and light immittance is not observed. Appendiceal orifice is not observed. Mucosa examined upon scope pulling out. There is mild diverticulosis on the left colon, and no signs or symptoms of diverticulitis. There was no polyp, mass, growth, inflammation, stricture, AV malformation, bleeding, ulcer, none of those. The patient does not have internal hemorrhoids. The patient has mild external hemorrhoids. The patient would benefit from repeat colonoscopy in 10 years from today or if clinically indicated otherwise. ESTELLE / MACRINA /[id number]
== END 2018-10-22 12:19 | disposition home or self-care (01) ==
LOC: MW.SDS 08:43
PROVIDERS: ATTEND Surgery
DX: K21.9 Gastro-esophageal reflux disease without esophagitis (principal); K29.50 Unspecified chronic gastritis without bleeding; K20.9 Esophagitis, unspecified; R19.7 Diarrhea, unspecified; R63.4 Abnormal weight loss; K57.30 Diverticulosis of large intestine without perforation or abscess without bleeding; K64.4 Residual hemorrhoidal skin tags; E66.9 Obesity, unspecified; Z68.31 Body mass index [BMI] 31.0-31.9, adult; Z87.891 Personal history of nicotine dependence; Z79.899 Other long term (current) drug therapy
CPT/HCPCS: 43239; 45378; 81025; J2001; J2250; J2704; J3010; J3490; J7120; 88305; 88312

== ENCOUNTER 2021-04-12 06:32 | Day surgery (SDC) | payer BC ==
[2021-04-11 17:12] LABS: BLOOD UREA NITROGEN,BUN 15 mg/dL (7.0-18.0); CARBON DIOXIDE,CO2 28.6 mmol/L (21.0-32.0); CHLORIDE,CL 103 mmol/L (98-107); GLUCOSE RANDOM 101 mg/dL (74-106); POTASSIUM,K 3.9 mmol/L (3.5-5.1); SODIUM,NA 136 mmol/L (136-145)
[2021-04-12] MEDS ORDERED: Naloxone 0.4 MG/ML SDV IVPUSH PRN (07:12)
[2021-04-12] MEDS ORDERED: Albuterol 0.083% 2.5 MG/3 ML Neb Soln NEB PRN (07:12)
[2021-04-12] MEDS ORDERED: Metoclopramide 10 MG/2 ML SDV IVPUSH PRN (07:12)
[2021-04-12] MEDS ORDERED: fentaNYL 100 MCG/2 ML SDV IVPUSH PRN (07:12)
[2021-04-12] MEDS ORDERED: Ondansetron 4 MG/2 ML SDV IVPUSH PRN ×2 (07:12→10:22)
[2021-04-12] MEDS ORDERED: Morphine 2 MG/ML SYRINGE IVPUSH PRN (07:12)
[2021-04-12] MEDS ORDERED: Methylene Blue 50 MG/10 ML Ampule ONE (07:15)
[2021-04-12] MEDS ORDERED: Bupivacaine 0.5% 30 ML SDV ONE (07:15)
--- NOTE | 2021-04-12 07:15 | PCM.PREANE ---
Preanesthetic Assessment - Procedure Proposed Procedure: Lap assisted vaginal hysterectomy, Obi Salingectomy, Cysto - Anesthesia/Transfusion/Family Hx Anesthesia History: Prior Anesthesia Without Reaction Family History of Anesthesia Reaction: No Transfusion History: Prior Transfusion Without Reaction Intubation History: Unknown - Review of Systems General: No Symptoms Pulmonary: No Symptoms (Smokes 1/4 PPD) Cardiovascular: No Symptoms Gastrointestinal: No Symptoms Neurological: No Symptoms Other: Reports: None - Physical Assessment NPO Status Date: 04/11/21 NPO Status Time: 19:00 Vital Signs: Last Vital Signs Temp 97.2 F 04/12/21 06:50 Pulse 77 04/12/21 06:50 Resp 16 04/12/21 06:50 BP 138/84 04/12/21 06:50 Pulse Ox 98 04/12/21 06:50 Height: 5 ft 3.5 in Weight: 72.121 kg ASA Class: 2 Mental Status: Alert & Oriented x3 Airway Class: Mallampati = 2 Dentition: Reports: Normal Dentition Thyro-Mental Finger Breadths: 3 Mouth Opening Finger Breadths: 3 ROM/Head Extension: Full Lungs: Clear to Auscultation, Normal Respiratory Effort - Lab Values: Laboratory Last Values WBC 9.66 K/uL (4.0-11.0) 04/11/21 15:50 RBC 4.45 M/uL (4.30-5.90) 04/11/21 15:50 Hgb 12.4 g/dL (12.0-16.0) 04/11/21 15:50 Hct 37.6 % (36.0-46.0) 04/11/21 15:50 MCV 84.5 fL (80.0-98.0) 04/11/21 15:50 MCH 27.9 pg (27.0-32.0) 04/11/21 15:50 MCHC 33.0 g/dL (31.0-37.0) 04/11/21 15:50 RDW Std Deviation 43.9 fl (28.0-62.0) 04/11/21 15:50 RDW Coeff of Phillpi 14 % (11.0-15.0) 04/11/21 15:50 Plt Count 468 K/uL (150-400) H 04/11/21 15:50 MPV 9.00 fL (7.40-12.00) 04/11/21 15:50 Nucleated RBC % 0.0 /100WBC 04/11/21 15:50 Nucleated RBCs # 0 K/uL 04/11/21 15:50 Sodium 136 mmol/L (136-145) 04/11/21 15:50 Potassium 3.9 mmol/L (3.5-5.1) 04/11/21 15:50 Chloride 103 mmol/L (98-107) 04/11/21 15:50 Carbon Dioxide 28.6 mmol/L (21.0-32.0) 04/11/21 15:50 BUN 15 mg/dL (7.0-18.0) 04/11/21 15:50 Creatinine 0.7 mg/dL (0.6-1.0) 04/11/21 15:50 Est Cr Clr Drug Dosing 85.80 mL/min 04/11/21 15:50 Estimated GFR (MDRD) > 60.0 ml/min 04/11/21 15:50 Glucose 101 mg/dL (74-106) 04/11/21 15:50 Calcium 8.2 mg/dL (8.5-10.1) L 04/11/21 15:50 HCG, Qual NEGATIVE (NEG) 04/11/21 15:50 Blood Type AB POSITIVE 04/11/21 15:53 Antibody Screen NEGATIVE 04/11/21 15:53 - Allergies Allergies/Adverse Reactions: Allergies Allergy/AdvReac Type Severity Reaction Status Date / Time No Known Allergies Allergy Verified 04/12/21 06:57 - Acknowledgements Anesthesia Type Planned: General Anesthesia Pt an Appropriate Candidate for the Planned Anesthesia: Yes Alternatives and Risks of Anesthesia Discussed w Pt/Guardian: Yes Pt/Guardian Understands and Agrees with Anesthesia Plan: Yes PreAnesthesia Questionnaire - Past Health History Medical/Surgical History: Denies Medical/Surgical History HEENT History: Reports: None Other Cardiovascular History: murmur as an infant Respiratory History: Reports: None Gastrointestinal History: Reports: Cholelithiasis Genitourinary History: Reports: None OPHTHALMIC MEDICAL ASSISTANT History: Reports: Dysfunctional Uterine Bleeding, Fibroids, , Spontaneous Musculoskeletal History: Reports: None Neurological History: Reports: None Psychiatric History: Reports: None Endocrine/Metabolic History: Reports: None Hematologic History: Reports: Blood Transfusion(s) Other Hematologic History: thinks she had a blood transfusion after a miscarrage Immunologic History: Reports: None Oncologic (Cancer) History: Reports: None Dermatologic History: Other Dermatologic History: hx of vitaligo - Past Surgical History Head Surgeries/Procedures: Reports: None HEENT Surgical History: Reports: None Cardiovascular Surgical History: Reports: None Respiratory Surgical History: Reports: None GI Surgical History: Reports: Cholecystectomy Female Surgical History: Reports: None Endocrine Surgical History: Reports: None Neurological Surgical History: Reports: None Musculoskeletal Surgical History: Reports: None Oncologic Surgical History: Reports: None Dermatological Surgical History: Reports: None - SUBSTANCE USE Tobacco Use Status *Q: Light Tobacco User Tobacco Use Within Last Twelve Months: Cigarettes Recreational Drug Use History: No - HOME MEDS Home Medications: Home Meds Ibuprofen 400 mg PO Q6H PRN 04/11/21 [History] Methylphenidate HCl [Methylphenidate ER] 1 tab PO BID 04/12/21 [History] Rosuvastatin Calcium 1 tab PO DAILY 04/12/21 [History] - CURRENT (IN HOUSE) MEDS Current Meds: Current Medications Ondansetron HCl (Ondansetron 4 Mg/2 Ml Sdv) 4 mg IVPUSH ONETIME PRN PRN Reason: Nausea/Vomiting
[2021-04-12] MEDS ORDERED: Propofol 200 MG/20 ML SDV ONE (07:38)
[2021-04-12] MEDS ORDERED: Midazolam 1 MG/ML 2 ML SDV ONE (07:38)
[2021-04-12] MEDS ORDERED: fentaNYL 250 MCG/5 ML SDV ONE (07:38)
[2021-04-12] MEDS ORDERED: Rocuronium Bromide 50 MG/5 ML Syringe ONE ×2 (07:39→09:20)
[2021-04-12] MEDS ORDERED: Glycopyrrolate 0.2 MG/ML SDV ONE (07:39)
[2021-04-12] MEDS ORDERED: Ondansetron 4 MG/2 ML SDV ONE (07:39)
[2021-04-12] MEDS ORDERED: Lidocaine 2% 5 ML SDV ONE (07:39)
[2021-04-12] MEDS ORDERED: Sugammadex Sodium 200 MG/2 ML VIAL ONE (07:39)
[2021-04-12] MEDS ORDERED: Ketorolac 30 MG/ML SDV ONE (07:39)
[2021-04-12] MEDS ORDERED: Sodium Chloride 0.9% 20 ML ONE (07:58)
[2021-04-12] MEDS ORDERED: ceFAZolin 1 GM Vial ONE (07:58)
[2021-04-12] MEDS ORDERED: Fluorescein 5 ML Vial ONE (08:25)
[2021-04-12] MEDS ORDERED: Furosemide 40 MG/4 ML VIAL ONE (08:25)
[2021-04-12] MEDS ORDERED: fentaNYL 100 MCG/2 ML SDV ONE (08:57)
--- NOTE | 2021-04-12 08:57 | PCM.POSTAN ---
POST ANESTHESIA ASSESSMENT - MENTAL STATUS Mental Status: Alert, Oriented - VITAL SIGNS Vital Signs: Last Vital Signs Temp 97.2 F 04/12/21 06:50 Pulse 77 04/12/21 06:50 Resp 16 04/12/21 06:50 BP 138/84 04/12/21 06:50 Pulse Ox 98 04/12/21 06:50 - RESPIRATORY Respiratory Status: Respiratory Rate WNL, Airway Patent, O2 Saturation Stable - CARDIOVASCULAR CV Status: Pulse Rate WNL, Blood Pressure Stable - GASTROINTESTINAL GI Status: No Symptoms - PAIN Pain Score: 0 - POST OP HYDRATION Hydration Status: Adequate & Stable
--- NOTE | 2021-04-12 09:00 | PCM48HPAN ---
Post Anesthesia Note - EVALUATION WITHIN 48HRS OF ANESTHETIC Vital Signs in Normal Range: Yes Patient Participated in Evaluation: Yes Respiratory Function Stable: Yes Airway Patent: Yes Cardiovascular Function Stable: Yes Hydration Status Stable: Yes Pain Control Satisfactory: Yes Nausea and Vomiting Control Satisfactory: Yes Mental Status Recovered: Yes Vital Signs: Last Vital Signs Temp 97.2 F 04/12/21 06:50 Pulse 77 04/12/21 06:50 Resp 16 04/12/21 06:50 BP 138/84 04/12/21 06:50 Pulse Ox 98 04/12/21 06:50 - COMMENTS/OBSERVATIONS Free Text/Narrative:: Pt doing well post-op. VSS. No apparent anesthetic complications. Dr. Willie Thornton
[2021-04-12] MEDS ORDERED: Octyl 2-Cyanoacrylate 1 Tube ONE ×2 (09:08→13:13)
--- NOTE | 2021-04-12 10:14 | PCM.OPNOTE ---
- General Post-Op/Procedure Note Date of Surgery/Procedure: 04/12/21 Operative Procedure(s): Laparoscopic assisted vaginal hysterectomy, bilateral salpingectomy and cytoscopy Pre Op Diagnosis: 45-year-old female with chronic pelvic pain Post-Op Diagnosis: Same Anesthesia Technique: General ET Tube Primary Surgeon: Fiona Montilla Human Resource Analyst: Justa Pereyra Human Resource Analyst: Taniya Estrada Pathology: Uterus and bilateral fallopian tubes Fluid Replacement, Intraop: 2,000 Output, Urine Amount: 500 EBL in mLs: 200 Drain/Tube Comments:: Ramos catheter Complications: none known Condition: Stable
[2021-04-12] MEDS ORDERED: Acetaminophen 1,000 MG in Premix Bag 1 BAG IV ONE (10:18)
--- NOTE | 2021-04-12 10:18 | PCM.POSTAN ---
POST ANESTHESIA ASSESSMENT - MENTAL STATUS Mental Status: Alert, Oriented - VITAL SIGNS Vital Signs: Last Vital Signs Temp 97.2 F 04/12/21 06:50 Pulse 77 04/12/21 06:50 Resp 16 04/12/21 06:50 BP 138/84 04/12/21 06:50 Pulse Ox 98 04/12/21 06:50 - RESPIRATORY Respiratory Status: Respiratory Rate WNL, Airway Patent, O2 Saturation Stable - CARDIOVASCULAR CV Status: Pulse Rate WNL, Blood Pressure Stable - GASTROINTESTINAL GI Status: No Symptoms - PAIN Pain Score: 8 - POST OP HYDRATION Hydration Status: Adequate & Stable
[2021-04-12] MEDS: HYDROmorphone 1 MG/ML Syringe IVPUSH PRN ×3 (10:20→10:40)
[2021-04-12] MEDS ORDERED: Acetaminophen/oxyCODONE 325-5 MG Tab PO PRN (10:22)
[2021-04-12] MEDS ORDERED: Ketorolac 30 MG/ML SDV IVPUSH ONE (10:22)
[2021-04-12] MEDS ORDERED: Promethazine 25 MG/ML SDV IM PRN (10:22)
[2021-04-12] MEDS ORDERED: Morphine 4 MG/ML Syringe IVPUSH PRN (10:22)
--- NOTE | 2021-04-12 17:58 | OR ---
SURGEON: Fiona Montilla M.D. DATE OF PROCEDURE: 04/12/2021 PREOPERATIVE DIAGNOSES: Pelvic pain, uterine leiomyomata, and menorrhagia. POSTOPERATIVE DIAGNOSES: Pelvic pain, uterine leiomyomata, and menorrhagia. PROCEDURE: Laparoscopically assisted vaginal hysterectomy, bilateral salpingectomy, and cystoscopy. PRIMARY SURGEON: Fiona Montilla MD ASSISTANTS: Justa Pereyra MD and second teacher's assistant, NEENA Niño. ANESTHESIA: General endotracheal. ESTIMATED BLOOD LOSS: 200 mL. FLUIDS: 2000 mL. PATHOLOGY SPECIMEN: Uterus, tubes, and ovaries. COMPLICATIONS: None known. DISPOSITION: Stable to Recovery. FINDINGS: The uterus was markedly enlarged with multiple intramural subserosal fibroids, and there was also note made of endometriosis along the right uterosacral ligament and in the posterior cul-de-sac. On cystoscopy, there was no evidence of any trauma to the bladder mucosa. There was also flow from bilateral ureteral orifices. BRIEF HISTORY: This is a 45-year-old female. She has severe ongoing suprapubic pressure and pelvic pain and known history of large fibroids. She was seen in 2018 and did not follow up due to acute need of a cholecystectomy. She has continued to have extremely heavy and painful periods. She was found on ultrasound to have an enlarged fibroid uterus. She was offered oral medications for control of the uterine fibroids. It was also discussed to use Lupron for 3 months to result in a safer less invasive hysterectomy with potentially less blood loss and also discussed fibroid embolization and myomectomy. Understanding all of these issues, she did desire to proceed with an attempted laparoscopically assisted vaginal hysterectomy with bilateral salpingectomy and cystoscopy understanding that there could potentially be need for an abdominal hysterectomy should the uterus prove too large or difficult to remove. Risk of bleeding; infection; injury to bowel, bladder, blood vessels, ureters, or other organs; or risk of anesthesia were reviewed. I also discussed the risk of potential change in sexual function. Understanding all these issues, she does desire to proceed. Additionally, she had developed worsening pelvic pain over the weeks prior to the surgery, and I did recommend proceeding with a CT, which was ordered for her. However, the patient requested cancelling the CT and declined. Additionally, she was initially started on Ketorolac for her pain, which was discontinued greater than 1 week prior to the surgery. DESCRIPTION OF PROCEDURE: With the patient in dorsal lithotomy position, under adequate general endotracheal anesthesia, the abdomen was prepped with chlorhexidine, and the perineum and vagina were prepped with Betadine and draped in usual fashion for vaginal surgery. SCDs were in place. Ramos catheter had been placed. Appropriate time-out was held. She had received 2 g of Ancef IV. After a time- out was held and the she was prepped and draped, bimanual examination revealed a 14 to 15 weeks size uterus with multiple large fibroids, primarily anteriorly, sharply anteverted. Speculum was placed in the vagina. The cervix was grasped with an Allis clamp, and the cervix was dilated to an 8 mm Hegar dilator. The ZUMI uterine manipulator was placed to the uterine fundus, and the balloon was filled. The speculum was removed from the vagina. Care Specialist's gloves were changed. Attention was then turned abdominally where 3 mL of 0.25% Marcaine was injected just above the umbilicus at the site of her prior laparoscopic incision, which was a transverse skin incision. This incision was then opened with a scalpel, and the fascia was then grasped with 0 Vicryl bilaterally, and scissors were used to enter the fascia and peritoneum. A finger was placed into the peritoneal cavity. There were no adhesions. Therefore, the laparoscopic 10 mm port was placed. The balloon was insufflated, and the port was safely secured to the retained fascia. The abdomen was insufflated. The laparoscope was placed into the abdominal cavity. There was no evidence of any adhesions. The uterus was elevated. Two additional ports were placed 2 cm cephalad and anterior to the anterior superior iliac spine, and 5 mm ports were placed. The uterus was elevated, and the patient was placed in steep Trendelenburg position. The bowel was retracted. Bilateral ureters were identified. The left ureter was peristalsing. The right ureter was clearly identified but was not peristalsing. There was also evidence of endometriosis along the right uterosacral ligament and posterior cul-de-sac. The tip of the tube on the left was grasped. The ligament between the tube and the ovary was then cross clamped and cut using LigaSure proceeding proximally along the mesosalpinx with the LigaSure to the uterine cornua where the utero-ovarian ligament was doubly clamped, cut, and cauterized. The anterior leaf of the broad ligament was then opened at the site of the round ligament using the LigaSure. The anterior leaf was then further opened anteriorly down to the level of the bladder where a bladder flap was developed and dissected nicely. The posterior peritoneum was also opened using the LigaSure with excellent visualization of the uterine artery, which was doubly cauterized and cut and proceeding down with an additional pedicle towards the uterosacral ligament. This process was repeated on the opposite side without significant difficulty, and the abdomen was then desufflated after the instruments were removed. The patient was placed in high Trendelenburg position. A weighted speculum was placed posteriorly. The vaginal sidewall retractors were utilized. The cervix was grasped with a Gaetano tenaculum, circumscribed using electrocautery. The posterior cul-de-sac was entered sharply. A Tamiko-Auvard speculum was placed posteriorly. The anterior cul-de-sac was entered sharply. A right angle retractor was placed anteriorly. The uterosacral ligaments were doubly clamped, cut, and doubly ligated using a Hernesto ligature of 0 Polysorb. Two additional pedicles were taken on the right and the left utilizing doubly clamped Hernesto clamps with a Hernesto ligature of 0 Polysorb. This completely freed the uterus and tubes, and then I was able to rotate the fundus to be the presenting part of the uterus as there was a very large fundal fibroid, which was then grasped and myomectomy was performed partially removing the fibroid but allowed reduction of the volume of the uterus to the point where it could be delivered vaginally. The uterus and tubes were then delivered and sent to Pathology for weight followed by permanent section. The pedicles were inspected and were hemostatic. The retained uterosacral ligament ligatures were ligated to the vaginal apices bilaterally. The vaginal mucosa was closed with a running suture of 0 Polysorb. The vagina was inspected and was hemostatic. The Ramos bulb was deflated. IV fluorescein had been given as well as Lasix, and there was flow noted from bilateral ureteral orifices as well as no evidence of any trauma to the bladder mucosa. A Ramos catheter was then replaced. Speculum was again placed in the vagina. The cuff was hemostatic, therefore, instruments were removed from the vagina. Care Specialist's gloves were again changed. The abdomen was reinsufflated. The pelvis was carefully inspected, irrigated and there were no areas of bleeding. Therefore, after inspection under high and low pressure, the abdomen was completely desufflated. The port sites were removed. The retained suture on the fascia at the umbilicus was closed with a running suture of 0 Polysorb to reapproximate the fascia and a subcuticular suture of 4-0 Monocryl to close subcutaneously the 3 skin incisions. Final sponge, needle, and instrument counts were reported as correct. There were no known complications. The patient was transferred to Recovery in good condition. SOL SCHRADER /[id number]
[2021-04-12] MEDS: Ketorolac 30 MG/ML SDV IVPUSH SCH ×2 (18:20→22:23)
[2021-04-12] MEDS: Acetaminophen/oxyCODONE 325-5 MG Tab PO PRN (18:20)
[2021-04-13] MEDS: Ketorolac 30 MG/ML SDV IVPUSH SCH ×3 (03:46→15:28)
--- NOTE | 2021-04-13 08:36 | PCM.PN ---
<Taniya Estrada - Last Filed: 04/13/21 08:36> - General Info Date of Service: 04/13/21 Admission Dx/Problem (Free Text): Pelvic pain d/t uterine fibroids Subjective Update: Complains of crampy, occasionally sharp abdominal pain around incision sites and pelvic area. Passing some gas, but no bowel movement. Wondering if pain is due to constipation. Ambulating, voiding, and tolerating food well. Denies vaginal bleeding. - Review of Systems General: Reports: No Symptoms HEENT: Reports: No Symptoms Pulmonary: Reports: No Symptoms Cardiovascular: Reports: No Symptoms Gastrointestinal: Reports: Abdominal Pain, Constipation, Flatus Genitourinary: Reports: No Symptoms Musculoskeletal: Reports: No Symptoms Skin: Reports: No Symptoms Neurological: Reports: No Symptoms Psychiatric: Reports: No Symptoms - Patient Data Vitals - Most Recent: Last Vital Signs Temp 37.1 C 04/12/21 23:11 Pulse 79 04/12/21 23:11 Resp 14 04/12/21 23:11 BP 133/77 04/12/21 23:11 Pulse Ox 97 04/12/21 23:11 Weight - Most Recent: 72.121 kg I&O - Last 24 Hours: Intake & Output 04/12/21 04/13/21 04/13/21 22:59 06:59 14:59 Intake Total 450 Output Total 1650 Balance -1200 Lab Results Last 24 Hours: Laboratory Results - last 24 hr 04/13/21 Range/Units 06:22 WBC 15.54 H (4.0-11.0) K/uL RBC 4.09 L (4.30-5.90) M/uL Hgb 11.3 L (12.0-16.0) g/dL Hct 34.2 L (36.0-46.0) % MCV 83.6 (80.0-98.0) fL MCH 27.6 (27.0-32.0) pg MCHC 33.0 (31.0-37.0) g/dL RDW Std Deviation 42.8 (28.0-62.0) fl RDW Coeff of Phillip 14 (11.0-15.0) % Plt Count 379 (150-400) K/uL MPV 9.50 (7.40-12.00) fL Neut % (Auto) 80.8 H (48.0-80.0) % Lymph % (Auto) 10.2 L (16.0-40.0) % [place] % (Auto) 8.6 (0.0-15.0) % Eos % (Auto) 0.3 (0.0-7.0) % Baso % (Auto) 0.1 (0.0-1.5) % Neut # (Auto) 12.6 H (1.4-5.7) K/uL Lymph # (Auto) 1.6 (0.6-2.4) K/uL [place] # (Auto) 1.3 H (0.0-0.8) K/uL Eos # (Auto) 0.0 (0.0-0.7) K/uL Baso # (Auto) 0.0 (0.0-0.1) K/uL Nucleated RBC % 0.0 /100WBC Nucleated RBCs # 0 K/uL Med Orders - Current: Current Medications Ketorolac Tromethamine (Ketorolac 30 Mg/Ml Sdv) 30 mg IVPUSH Q6H CECE Stop: 04/17/21 16:31 Last Admin: 04/13/21 03:46 Dose: 30 mg Documented by: Morphine Sulfate (Morphine 4 Mg/Ml Syringe) 4 mg IVPUSH Q2H PRN PRN Reason: Pain (severe 7-10) Last Admin: 04/12/21 14:03 Dose: 4 mg Documented by: Ondansetron HCl (Ondansetron 4 Mg/2 Ml Sdv) 4 mg IVPUSH Q6H PRN PRN Reason: Nausea/Vomiting Oxycodone/Acetaminophen (Acetaminophen/Oxycodone 325-5 Mg Tab) 1 tab PO Q4H PRN PRN Reason: Pain (moderate 4-6) Oxycodone/Acetaminophen (Acetaminophen/Oxycodone 325-5 Mg Tab) 2 tab PO Q4H PRN PRN Reason: Pain (moderate 4-6) Last Admin: 04/12/21 18:20 Dose: 2 tab Documented by: Promethazine HCl (Promethazine 25 Mg/Ml Sdv) 25 mg IM Q6H PRN PRN Reason: Nausea/Vomiting Discontinued Medications Albuterol (Albuterol 0.083% 2.5 Mg/3 Ml Neb Soln) 2.5 mg NEB ONETIME PRN PRN Reason: Wheezing Bupivacaine HCl (Bupivacaine 0.5% 30 Ml Sdv) Confirm Administered Dose 30 ml .ROUTE .STK-MED ONE Stop: 04/12/21 07:16 Cefazolin Sodium (Cefazolin 1 Gm Vial) Confirm Administered Dose 3 gm .ROUTE .STK-MED ONE Stop: 04/12/21 07:59 Droperidol (Droperidol 5 Mg/2 Ml Sdv) 0.625 mg IVPUSH ONETIME PRN PRN Reason: Nausea/Vomiting Fentanyl (Fentanyl 100 Mcg/2 Ml Sdv) 50 mcg IVPUSH Q5M PRN PRN Reason: Pain (mild 1-3) Fentanyl (Fentanyl 250 Mcg/5 Ml Sdv) Confirm Administered Dose 250 mcg .ROUTE .STK-MED ONE Stop: 04/12/21 07:39 Fentanyl (Fentanyl 100 Mcg/2 Ml Sdv) Confirm Administered Dose 100 mcg .ROUTE .STK-MED ONE Stop: 04/12/21 08:58 Fluorescein Sodium (Fluorescein 5 Ml Vial) Confirm Administered Dose 5 ml .ROUTE .STK-MED ONE Stop: 04/12/21 08:26 Furosemide (Furosemide 40 Mg/4 Ml Vial) Confirm Administered Dose 40 mg .ROUTE .STK-MED ONE Stop: 04/12/21 08:26 Glycopyrrolate (Glycopyrrolate 0.2 Mg/Ml Sdv) Confirm Administered Dose 0.2 mg .ROUTE .STK-MED ONE Stop: 04/12/21 07:40 Hydromorphone HCl (Hydromorphone 1 Mg/Ml Syringe) 1 mg IVPUSH Q10M PRN PRN Reason: Pain (moderate 4-6) Last Admin: 04/12/21 10:40 Dose: 1 mg Documented by: Sodium Chloride (Normal Saline) Confirm Administered Dose 20 mls @ as directed .ROUTE .STK-MED ONE Stop: 04/12/21 07:59 Acetaminophen 1,000 mg/ Premix 100 mls @ 400 mls/hr IV NOW ONE Stop: 04/12/21 10:32 Last Admin: 04/12/21 10:26 Dose: 400 mls/hr Documented by: Acetaminophen (Ofirmev 1000 Mg/100 Ml) Confirm Administered Dose 100 mls @ as directed .ROUTE .STK-MED ONE Stop: 04/12/21 10:20 Last Admin: 04/12/21 12:38 Dose: Not Given Documented by: Ketorolac Tromethamine (Ketorolac 30 Mg/Ml Sdv) Confirm Administered Dose 30 mg .ROUTE .[facility]-MED ONE Stop: 04/12/21 07:40 Ketorolac Tromethamine (Ketorolac 30 Mg/Ml Sdv) 30 mg IVPUSH ONETIME ONE Stop: 04/12/21 10:23 Last Admin: 04/12/21 11:41 Dose: Not Given Documented by: Lidocaine (Lidocaine 2% 5 Ml Sdv) Confirm Administered Dose 5 ml .ROUTE .[facility]MED ONE Stop: 04/12/21 07:40 Methylene Blue (Methylene Blue 50 Mg/10 Ml Ampule) Confirm Administered Dose 50 mg .ROUTE .[facility]-MED ONE Stop: 04/12/21 07:16 Metoclopramide HCl (Metoclopramide 10 Mg/2 Ml Sdv) 10 mg IVPUSH ONETIME PRN PRN Reason: Nausea/Vomiting Midazolam HCl (Midazolam 1 Mg/Ml 2 Ml Sdv) Confirm Administered Dose 2 mg .ROUTE .[facility]-MED ONE Stop: 04/12/21 07:39 Miscellaneous Medication (Phenylephrine Hcl In 0.9% Nacl 1 Mg/10 Ml Syringe) Confirm Administered Dose 1 mg .ROUTE .[facility]-MED ONE Stop: 04/12/21 10:43 Morphine Sulfate (Morphine 2 Mg/Ml Syringe) 2 mg IVPUSH Q10M PRN PRN Reason: Pain (severe 7-10) Naloxone HCl (Naloxone 0.4 Mg/Ml Sdv) 0.1 mg IVPUSH ASDIRECTED PRN PRN Reason: Respiratory Depression Octyl Cyanoacrylate (Octyl 2-Cyanoacrylate 1 Tube) Confirm Administered Dose 1 applic .ROUTE .[facility]-MED ONE Stop: 04/12/21 09:09 Octyl Cyanoacrylate (Octyl 2-Cyanoacrylate 1 Tube) Confirm Administered Dose 1 applic .ROUTE .[facility]-MED ONE Stop: 04/12/21 13:14 Ondansetron HCl (Ondansetron 4 Mg/2 Ml Sdv) 4 mg IVPUSH ONETIME PRN PRN Reason: Nausea/Vomiting Ondansetron HCl (Ondansetron 4 Mg/2 Ml Sdv) Confirm Administered Dose 4 mg .ROUTE .[facility]-MED ONE Stop: 04/12/21 07:40 Propofol (Propofol 200 Mg/20 Ml Sdv) Confirm Administered Dose 200 mg .ROUTE .STK-MED ONE Stop: 04/12/21 07:39 Rocuronium Wilcox (Rocuronium Wilcox 50 Mg/5 Ml Syringe) Confirm Administered Dose 50 mg .ROUTE .STK-MED ONE Stop: 04/12/21 07:40 Rocuronium Wilcox (Rocuronium Wilcox 50 Mg/5 Ml Syringe) Confirm Administered Dose 50 mg .ROUTE .STK-MED ONE Stop: 04/12/21 09:21 Sugammadex Sodium (Sugammadex Sodium 200 Mg/2 Ml Vial) Confirm Administered Dose 200 mg .ROUTE .STK-MED ONE Stop: 04/12/21 07:40 - Exam Urinary Catheter Total Time: 0Days 8Hours General: Alert, Oriented HEENT: EOMI Neck: Supple Lungs: Clear to Auscultation, Normal Respiratory Effort Cardiovascular: Regular Rate, Regular Rhythm GI/Abdominal Exam: Soft, No Distention, Tender Back Exam: Full Range of Motion, CVA Tenderness (L) Extremities: Normal Inspection, Normal Range of Motion, Non-Tender, No Pedal Edema Skin: Warm, Dry Wound/Incisions: Healing Well, Dressing Dry and Intact (Some dry blood on dressings, but no active bleeding) Neurological: No New Focal Deficit Psy/Mental Status: Alert, Normal Affect, Normal Mood - Patient Data Lab Results Last 24 hrs: Laboratory Results - last 24 hr 04/13/21 Range/Units 06:22 WBC 15.54 H (4.0-11.0) K/uL RBC 4.09 L (4.30-5.90) M/uL Hgb 11.3 L (12.0-16.0) g/dL Hct 34.2 L (36.0-46.0) % MCV 83.6 (80.0-98.0) fL MCH 27.6 (27.0-32.0) pg MCHC 33.0 (31.0-37.0) g/dL RDW Std Deviation 42.8 (28.0-62.0) fl RDW Coeff of Phillip 14 (11.0-15.0) % Plt Count 379 (150-400) K/uL MPV 9.50 (7.40-12.00) fL Neut % (Auto) 80.8 H (48.0-80.0) % Lymph % (Auto) 10.2 L (16.0-40.0) % [place] % (Auto) 8.6 (0.0-15.0) % Eos % (Auto) 0.3 (0.0-7.0) % Baso % (Auto) 0.1 (0.0-1.5) % Neut # (Auto) 12.6 H (1.4-5.7) K/uL Lymph # (Auto) 1.6 (0.6-2.4) K/uL [place] # (Auto) 1.3 H (0.0-0.8) K/uL Eos # (Auto) 0.0 (0.0-0.7) K/uL Baso # (Auto) 0.0 (0.0-0.1) K/uL Nucleated RBC % 0.0 /100WBC Nucleated RBCs # 0 K/uL Result Diagrams: 04/13/21 06:22 04/11/21 15:50 Sepsis Event Note - Evaluation Sepsis Screening Result: No Definite Risk - Focused Exam Vital Signs: Vital Signs Temp Pulse Resp BP Pulse Ox 04/12/21 23:11 37.1 C 79 14 133/77 97 - Problem List Review Problem List Initiated/Reviewed/Updated: Yes - Assessment Assessment:: 45-year-old female POD #1 s/p Laparoscopic assisted vaginal hysterectomy, bilateral salpingectomy and cytoscopy. c/o abdominal pain around incision sites and hypogastric region. Multimodal pain control. Hgb 11.3 down from 12.4. Vital signs stable. - Plan Plan:: - Multimodal pain control - Consider stool softener - Can likely discharge today - Follow-up in clinic in 4-6 weeks <Fiona Montilla - Last Filed: 04/13/21 10:10> - Patient Data Vitals - Most Recent: Last Vital Signs Temp 36.7 C 04/13/21 08:00 Pulse 85 04/13/21 08:00 Resp 16 04/13/21 08:00 BP 130/81 04/13/21 08:00 Pulse Ox 96 04/13/21 08:00 I&O - Last 24 Hours: Intake & Output 04/12/21 04/13/21 04/13/21 22:59 06:59 14:59 Intake Total 450 Output Total 1650 Balance -1200 Lab Results Last 24 Hours: Laboratory Results - last 24 hr 04/13/21 04/13/21 Range/Units 06:22 06:22 WBC 15.54 H (4.0-11.0) K/uL RBC 4.09 L (4.30-5.90) M/uL Hgb 11.3 L (12.0-16.0) g/dL Hct 34.2 L (36.0-46.0) % MCV 83.6 (80.0-98.0) fL MCH 27.6 (27.0-32.0) pg MCHC 33.0 (31.0-37.0) g/dL RDW Std Deviation 42.8 (28.0-62.0) fl RDW Coeff of Phillip 14 (11.0-15.0) % Plt Count 379 (150-400) K/uL MPV 9.50 (7.40-12.00) fL Neut % (Auto) 80.8 H (48.0-80.0) % Lymph % (Auto) 10.2 L (16.0-40.0) % [place] % (Auto) 8.6 (0.0-15.0) % Eos % (Auto) 0.3 (0.0-7.0) % Baso % (Auto) 0.1 (0.0-1.5) % Neut # (Auto) 12.6 H (1.4-5.7) K/uL Lymph # (Auto) 1.6 (0.6-2.4) K/uL [place] # (Auto) 1.3 H (0.0-0.8) K/uL Eos # (Auto) 0.0 (0.0-0.7) K/uL Baso # (Auto) 0.0 (0.0-0.1) K/uL Nucleated RBC % 0.0 /100WBC Nucleated RBCs # 0 K/uL Sodium 136 (136-145) mmol/L Potassium 3.5 (3.5-5.1) mmol/L Chloride 101 (98-107) mmol/L Carbon Dioxide 27.5 (21.0-32.0) mmol/L BUN 12 (7.0-18.0) mg/dL Creatinine 1.0 (0.6-1.0) mg/dL Est Cr Clr Drug Dosing 60.06 mL/min Estimated GFR (MDRD) > 60.0 ml/min Glucose 75 (74-106) mg/dL Calcium 8.0 L (8.5-10.1) mg/dL Med Orders - Current: Current Medications Ketorolac Tromethamine (Ketorolac 30 Mg/Ml Sdv) 30 mg IVPUSH Q6H CECE Stop: 04/17/21 16:31 Last Admin: 04/13/21 03:46 Dose: 30 mg Documented by: Morphine Sulfate (Morphine 4 Mg/Ml Syringe) 4 mg IVPUSH Q2H PRN PRN Reason: Pain (severe 7-10) Last Admin: 04/12/21 14:03 Dose: 4 mg Documented by: Ondansetron HCl (Ondansetron 4 Mg/2 Ml Sdv) 4 mg IVPUSH Q6H PRN PRN Reason: Nausea/Vomiting Oxycodone/Acetaminophen (Acetaminophen/Oxycodone 325-5 Mg Tab) 1 tab PO Q4H PRN PRN Reason: Pain (moderate 4-6) Oxycodone/Acetaminophen (Acetaminophen/Oxycodone 325-5 Mg Tab) 2 tab PO Q4H PRN PRN Reason: Pain (moderate 4-6) Last Admin: 04/13/21 08:56 Dose: 2 tab Documented by: Promethazine HCl (Promethazine 25 Mg/Ml Sdv) 25 mg IM Q6H PRN PRN Reason: Nausea/Vomiting Discontinued Medications Albuterol (Albuterol 0.083% 2.5 Mg/3 Ml Neb Soln) 2.5 mg NEB ONETIME PRN PRN Reason: Wheezing Bupivacaine HCl (Bupivacaine 0.5% 30 Ml Sdv) Confirm Administered Dose 30 ml .ROUTE .STK-MED ONE Stop: 04/12/21 07:16 Cefazolin Sodium (Cefazolin 1 Gm Vial) Confirm Administered Dose 3 gm .ROUTE .STK-MED ONE Stop: 04/12/21 07:59 Droperidol (Droperidol 5 Mg/2 Ml Sdv) 0.625 mg IVPUSH ONETIME PRN PRN Reason: Nausea/Vomiting Fentanyl (Fentanyl 100 Mcg/2 Ml Sdv) 50 mcg IVPUSH Q5M PRN PRN Reason: Pain (mild 1-3) Fentanyl (Fentanyl 250 Mcg/5 Ml Sdv) Confirm Administered Dose 250 mcg .ROUTE .STK-MED ONE Stop: 04/12/21 07:39 Fentanyl (Fentanyl 100 Mcg/2 Ml Sdv) Confirm Administered Dose 100 mcg .ROUTE .STK-MED ONE Stop: 04/12/21 08:58 Fluorescein Sodium (Fluorescein 5 Ml Vial) Confirm Administered Dose 5 ml .ROUTE .STK-MED ONE Stop: 04/12/21 08:26 Furosemide (Furosemide 40 Mg/4 Ml Vial) Confirm Administered Dose 40 mg .ROUTE . STK-MED ONE Stop: 04/12/21 08:26 Glycopyrrolate (Glycopyrrolate 0.2 Mg/Ml Sdv) Confirm Administered Dose 0.2 mg .ROUTE .STK-MED ONE Stop: 04/12/21 07:40 Hydromorphone HCl (Hydromorphone 1 Mg/Ml Syringe) 1 mg IVPUSH Q10M PRN PRN Reason: Pain (moderate 4-6) Last Admin: 04/12/21 10:40 Dose: 1 mg Documented by: Sodium Chloride (Normal Saline) Confirm Administered Dose 20 mls @ as directed .ROUTE .STK-MED ONE Stop: 04/12/21 07:59 Acetaminophen 1,000 mg/ Premix 100 mls @ 400 mls/hr IV NOW ONE Stop: 04/12/21 10:32 Last Admin: 04/12/21 10:26 Dose: 400 mls/hr Documented by: Acetaminophen (Ofirmev 1000 Mg/100 Ml) Confirm Administered Dose 100 mls @ as directed .ROUTE .STK-MED ONE Stop: 04/12/21 10:20 Last Admin: 04/12/21 12:38 Dose: Not Given Documented by: Ketorolac Tromethamine (Ketorolac 30 Mg/Ml Sdv) Confirm Administered Dose 30 mg .ROUTE .STK-MED ONE Stop: 04/12/21 07:40 Ketorolac Tromethamine (Ketorolac 30 Mg/Ml Sdv) 30 mg IVPUSH ONETIME ONE Stop: 04/12/21 10:23 Last Admin: 04/12/21 11:41 Dose: Not Given Documented by: Lidocaine (Lidocaine 2% 5 Ml Sdv) Confirm Administered Dose 5 ml .ROUTE .STK-MED ONE Stop: 04/12/21 07:40 Methylene Blue (Methylene Blue 50 Mg/10 Ml Ampule) [facility]: 04/12/21 07:16 Metoclopramide HCl (Metoclopramide 10 Mg/2 Ml Sdv) 10 mg IVPUSH ONETIME PRN PRN Reason: Nausea/Vomiting Midazolam HCl (Midazolam 1 Mg/Ml 2 Ml Sdv) Confirm Administered Dose 2 mg .ROUTE .[facility]-MED ONE Stop: 04/12/21 07:39 Miscellaneous Medication (Phenylephrine Hcl In 0.9% Nacl 1 Mg/10 Ml Syringe) Confirm Administered D[facility] 1 [facility] Stop: 04/12/21 10:43 Morphine Sulfate (Morphine 2 Mg/Ml Syringe) 2 mg IVPUSH Q10M PRN PRN Reason: Pain (severe 7-10) Naloxone HCl (Naloxone 0.4 Mg/Ml Sdv) 0.1 mg IVPUSH ASDIRECTED PRN PRN Reason: Respiratory Depression Octyl Cyanoacrylate (Octyl 2-Cyanoacrylate 1 Tube) Confirm Administered Dose 1 applic .ROUTE .[facility]-MED ONE Stop: 04/12/21 09:09 Octyl Cyanoacrylate (Octyl 2-Cyanoacrylate 1 Tube) Confirm Administered Dose 1 applic [facility] Stop: 04/12/21 13:14 Ondansetron HCl (Ondansetron 4 Mg/2 Ml Sdv) 4 mg IVPUSH ONETIME PRN PRN Reason: Nausea/Vomiting Ondansetron HCl (Ondansetron 4 Mg/2 Ml Sdv) Confirm Administered Dose 4 mg [facility] Stop: 04/12/21 07:40 Propofol (Propofol 200 Mg/20 Ml Sdv) Confirm Administered Dose 200 mg [facility] Stop: 04/12/21 07:39 Rocuronium Wilcox (Rocuronium [place] 50 Mg/5 Ml Syringe) Confirm Administered Dose 50 mg [facility] Stop: 04/12/21 07:40 Rocuronium Wilcox (Rocuronium [place] 50 Mg/5 Ml Syringe) Confirm Administered Dose 50 mg .ROUTE .[facility]-MED ONE Stop: 04/12/21 09:21 Sugammadex Sodium (Sugammadex Sodium 200 Mg/2 Ml Vial) Confirm Administered Dose 200 mg .ROUTE .[facility]-C ONE Stop: 04/12/21 07:40 - Patient Data Lab Results Last 24 hrs: Laboratory Results - last 24 hr 04/13/21 04/13/21 Range/Units 06:22 06:22 WBC 15.54 H (4.0-11.0) K/uL RBC 4.09 L (4.30-5.90) M/uL Hgb 11.3 L (12.0-16.0) g/dL Hct 34.2 L (36.0-46.0) % MCV 83.6 (80.0-98.0) fL MCH 27.6 (27.0-32.0) pg MCHC 33.0 (31.0-37.0) g/dL RDW Std Deviation 42.8 (28.0-62.0) fl RDW Coeff of Phillip 14 (11.0-15.0) % Plt Count 379 (150-400) K/uL MPV 9.50 (7.40-12.00) fL Neut % (Auto) 80.8 H (48.0-80.0) % Lymph % (Auto) 10.2 L (16.0-40.0) % [place] % (Auto) 8.6 (0.0-15.0) % Eos % (Auto) 0.3 (0.0-7.0) % Baso % (Auto) 0.1 (0.0-1.5) % Neut # (Auto) 12.6 H (1.4-5.7) K/uL Lymph # (Auto) 1.6 (0.6-2.4) K/uL [place] # (Auto) 1.3 H (0.0-0.8) K/uL Eos # (Auto) 0.0 (0.0-0.7) K/uL Baso # (Auto) 0.0 (0.0-0.1) K/uL Nucleated RBC % 0.0 /100WBC Nucleated RBCs # 0 K/uL Sodium 136 (136-145) mmol/L Potassium 3.5 (3.5-5.1) mmol/L Chloride 101 (98-107) mmol/L Carbon Dioxide 27.5 (21.0-32.0) mmol/L BUN 12 (7.0-18.0) mg/dL Creatinine 1.0 (0.6-1.0) mg/dL Est Cr Clr Drug Dosing 60.06 mL/min Estimated GFR (MDRD) > 60.0 ml/min Glucose 75 (74-106) mg/dL Calcium 8.0 L (8.5-10.1) mg/dL Result Diagrams: 04/13/21 06:22 04/13/21 06:22 Sepsis Event Note - Focused Exam Vital Signs: Vital Signs Temp Pulse Resp BP Pulse Ox 04/13/21 08:00 36.7 C 85 16 130/81 96 04/12/21 23:11 37.1 C 79 14 133/77 97 - Problem List Review Problem List Initiated/Reviewed/Updated: Yes - My Orders Last 24 Hours: My Active Orders 04/12/21 10:22 Patient Status [ADT] Routine Notify Provider Intake and Out [RC] ASDIRECTED Notify Provider Vital Signs [RC] ASDIRECTED Oxygen Therapy [RC] ASDIRECTED RT Incentive Spirometry [RC] Q2HWA Up With Assistance [RC] PER UNIT ROUTINE Up ad Donna [RC] PER UNIT ROUTINE Vital Signs [RC] PER UNIT ROUTINE Acetaminophen/oxyCODONE [Percocet 325-5 MG] 1 tab PO Q4H PRN Acetaminophen/oxyCODONE [Percocet 325-5 MG] 2 tab PO Q4H PRN Morphine 4 mg IVPUSH Q2H PRN Ondansetron [Zofran] 4 mg IVPUSH Q6H PRN Promethazine [Phenergan] 25 mg IM Q6H PRN Peripheral IV Discontinue [OM.PC] Routine Sequential Compression Device [OM.PC] Per Unit Routine Resuscitation Status Routine 04/12/21 10:24 Antiembolic Devices [RC] PER UNIT ROUTINE 04/12/21 Lunch Regular Diet [DIET] 04/12/21 16:30 Ketorolac [Toradol] 30 mg IVPUSH Q6H 04/13/21 09:33 Ang Abdomen [CT] Stat CTA Pelvis W & W/O Contrast [Ang Pelvis] [CT] Routine - Assessment Assessment:: Pain is adequately controlled. Some gas pain. Discussed Cr increased from 0.7 to 1.0 therefore I would like to get CT to check ureters. She is agreeable and CT is ordered. Anticipate discharge after CT. Discharge instructions reviewed.
[2021-04-13 08:42] VITALS: BP 130/81
[2021-04-13 08:45] LABS: BLOOD UREA NITROGEN,BUN 12 mg/dL (7.0-18.0); CARBON DIOXIDE,CO2 27.5 mmol/L (21.0-32.0); CHLORIDE,CL 101 mmol/L (98-107); GLUCOSE RANDOM 75 mg/dL (74-106); POTASSIUM,K 3.5 mmol/L (3.5-5.1); SODIUM,NA 136 mmol/L (136-145)
[2021-04-13] MEDS: Acetaminophen/oxyCODONE 325-5 MG Tab PO PRN ×2 (08:56→13:57)
[2021-04-13 11:41] VITALS: PULSE 78
--- NOTE | 2021-04-13 13:05 | CT ---
Indication: Abdominal pain, postop partial hysterectomy, evaluate for ureteral laceration. Comparison: None available. Technique: Noncontrast CT of the abdomen and pelvis followed by a CTU of the abdomen and pelvis. 100 cc of Isovue 370 administered. Findings: Hydronephrosis and ureterectasis is seen involving the right ureter. There is a small amount of free fluid in the pelvis. No opacification of the right collecting system on the CTU with a delayed nephrogram on the right likely due to the obstruction. The uterus has been surgically removed. The left-sided renal collecting system and ureter appear unremarkable. Contrast in the urinary bladder is likely from the left-sided collecting system. Small amount of free intraperitoneal and extraperitoneal gas likely related to the operation. No pleural effusion or lung bases. Post cholecystectomy change. The spleen is normal in size. The pancreas is grossly unremarkable. No intra or extrahepatic biliary ductal dilatation. No bowel obstruction. Impression: Distal right ureteral injury associated with severe obstruction of the right ureter and kidney following hysterectomy. A delayed CT could be obtained to determine if there is a ureteral leak associated with the distal obstruction as clinically warranted to account for the small amount of fluid in the pelvis. Recommend urgent urology consultation. Please note that all CT scans at this facility use dose modulation, iterative reconstruction, and/or weight-based dosing when appropriate to reduce radiation dose to as low as reasonably achievable. Dictated by Tomás Rivas MD @ 04/13/2021 1:03:13 PM (Electronically Signed)
[2021-04-13] MEDS ORDERED: Iopamidol 755 MG/ML 500 ML Multipack Bottle IVPUSH STA (19:13)
--- NOTE | 2021-04-14 13:13 | DISCH ---
DATE OF DISCHARGE: 04/13/2021 PRIMARY CARE PHYSICIAN: Fiona Montilla M.D. DATE OF PROCEDURE: 04/12/2021. CHIEF COMPLAINT: Uterine fibroids. HISTORY: This is a 45-year-old female with a long history of uterine fibroids. She is G7, P 6-0-1-6 with all vaginal deliveries with the largest baby of 8 pounds 14 ounces. She has had severe ongoing suprapubic pressure and pelvic pain. She has a known history of large uterine fibroids. She was seen in 2018 and subsequently had need of an acute cholecystectomy and did not follow up for additional imaging for fibroids. Her periods had become extremely heavy and painful, and she would like to proceed with a hysterectomy for uterine fibroids. She was counseled regarding options including oral medications such as Myfembree or alternatively utilizing Lupron for 3 months to result in a decrease in size of the uterus, potentially for less invasive hysterectomy. However, she desired to proceed with a laparoscopically assisted vaginal hysterectomy. On examination, the uterus was 14-week sized and mobile with vaginal deliveries. I felt that the laparoscopically assisted approach was an appropriate technique. She was consented for a laparoscopically assisted vaginal hysterectomy with bilateral salpingectomy and cystoscopy, possible abdominal hysterectomy with risks including bleeding; infection; injury to bowel, bladder, blood vessels, ureters, or other organs; risk of thromboembolic event; risk of anesthesia; risk of change in sexual function. Understanding all of these risks, she did desire to proceed with a hysterectomy. A note was made that, after her preoperative visit, in approximately 6 days, she did call with severe right lower quadrant pain. She also was noted to have Trichomonas on her Pap smear, which was treated with Flagyl 500 mg b.i.d. for 7 days preoperatively. She had been given Ketoralac for pain and instructed to stop it at least 7 days prior to the surgery. She called on 04/01/2021 with unbearable pain, having to stay home from work. She had finished the Ketoralac that was prescribed. She was taking ibuprofen and required a heating pad to her abdomen for pain within the right lower quadrant. Therefore, I did order a CT with IV and p.o. contrast to rule out kidney stone or appendicitis. However, in the interim, the patient called and canceled her CT because she started her period and states that her pain was improved, and that was on 04/02/2021. HOSPITAL COURSE: She presented on 04/12/2021 for her procedure. She underwent an uneventful laparoscopically assisted vaginal hysterectomy for enlarged fibroid uterus with cystoscopy and bilateral salpingectomy. Postoperatively, she remained stable. Routine postop labs after hysterectomy includes BMP to evaluate for creatinine. Her creatinine went from 0.7 to 1.0, and therefore due to the rise in the creatinine, although it was still normal, I did recommend proceeding with a CT of the abdomen and pelvis with IV and p.o. contrast. At this time, she denied any significant pain except for normal midline lower abdominal cramping as anticipated after the surgery. On postoperative day #1 her vitals were; blood pressure 130/81, respiratory rate of 16, temperature 96.7, and pulse of 85. In general, she is alert and oriented. Neck is supple without lymphadenopathy or thyromegaly. Lungs are clear bilaterally. CV, regular rate without murmur. She had no CVA tenderness. No rebound or guarding of the abdomen. Very slight distention consistent with recent surgery with good bowel sounds. The laparoscopic incision dressings were intact with a small amount of drainage. Laboratory studies included white blood cell count 15.5, consistent with postop state; hemoglobin 11.3, preop was 12.4; and platelet count of 379. Sodium 136, potassium 3.5, chloride 101, CO2 of 27.5, BUN 12, creatinine 1.0 (preoperatively was 0.7), glucose 75, and calcium 8.0. Due to the rise in creatinine, I did proceed with ordering a CT of the abdomen and pelvis with IV contrast. The impression on the reading was distal right ureteral injury associated with severe obstruction of the right ureter and kidney following hysterectomy. A delayed CT could be obtained to determine if there is a ureteral leak associated with the distal obstruction. I recommend urgent Urology consultation. I did discuss these findings with Dr. Harper in [facility] in [facility] from the Urology service. After discussion, he did agree to evaluate the patient and proceed potentially even this evening with a cystoscopy, stent placement, and then either ureteral reimplantation if needed or other indicated procedures. Dr. Carpenter, stars specialist will be the accepting physician. The patient has been stable all day. Plan was for discharge this morning, however, discharge was delayed due to the CT. I therefore feel that she is stable to travel by personal vehicle to [place]. I did speak with the patient about the CT findings and explained the plan for urologic evaluation, and I also did speak with her and explained that if there is an acute urologic injury, it is best to proceed with evaluation as soon as possible, and therefore he agrees to travel to [place] with his to [facility], and they are given specific information and directions. Face sheet and current chart are faxed and copied and sent to the patient. Additionally, the images from the current CT as well as the previous CT from 2019 were pushed to PACS for access by Dr. Harper. SOL / MACRINA /[id number]
== END 2021-04-13 18:11 | disposition home or self-care (01) ==
LOC: MW.SDS 06:32 → UNDOADMIN 10:40 → MW.MS 10:40 → UNDODISIN 04-13 15:55 → MW.SDS 04-13 18:11
PROVIDERS: ATTEND Obstetrics & Gynecology
DX: D25.1 Intramural leiomyoma of uterus (principal); D25.2 Subserosal leiomyoma of uterus; N80.0 Endometriosis of uterus; N87.9 Dysplasia of cervix uteri, unspecified; Z79.899 Other long term (current) drug therapy; Z79.82 Long term (current) use of aspirin; Z90.49 Acquired absence of other specified parts of digestive tract; F17.210 Nicotine dependence, cigarettes, uncomplicated
CPT/HCPCS: 36415; 58554; 74178; 80048; 84703; 85025; 85027; 86850; 86900; 86901; 88307; A9270; J0131; J0690; J1170; J1885; J1940; J2250; J2270; J2370; J2704; J3010; J3490; J7030; Q9967; 00944; J2405